=== PATIENT | female | born 1950 | race Two or more races ===

== ENCOUNTER 2022-07-09 10:49 | Inpatient (IN) | payer OTHER ==
[~2022-07-09] VITALS: Ht 160 cm; Wt 85.7 kg
[2022-07-09] MEDS ORDERED: VASOFLEX D1 CA1 EACH PO (15:16)
[2022-07-09] MEDS ORDERED: CARDURA1 MG PO (15:16)
[2022-07-09] MEDS ORDERED: LOSARTAN POTAS100 MG PO (15:16)
[2022-07-09] MEDS ORDERED: PREVACID30 MG PO (15:17)
[2022-07-09] MEDS ORDERED: CLONAZEPAM1 MG PO (15:17)
[2022-07-09] MEDS ORDERED: WELLBUTRIN SR150 MG PO (15:17)
[2022-07-09] MEDS ORDERED: PEPCID40 MG PO (15:17)
[2022-07-09] MEDS ORDERED: PROAIR RESPICL90 MCG IH (15:18)
[2022-07-09] MEDS ORDERED: SYMBICORT 16010.2 GM IH (15:18)
[2022-07-14] MEDS ORDERED: MONTELUKAST SOD10 MG (14:02)
[2022-07-14] MEDS ORDERED: DOXAZOSIN MESYLA2 MG (14:03)
[2022-07-14] MEDS ORDERED: FLEXGEN TABLET1 EACH (14:03)
[2022-07-14] MEDS ORDERED: ATROVENT HFA12.9 GM (14:03)
[2022-07-18] MEDS ORDERED: HYOSCYAMINE0.125 M1 SL (10:53)
== END 2022-07-18 14:33 | disposition home or self-care (01) | DRG 330 ==
LOC: SURH 07-14 10:00 → O/R 07-14 11:47 → SURH 07-14 14:31
PROVIDERS: ADMIT Surgery; ATTEND Surgery
PROC: 07BB4ZZ Excision of Mesenteric Lymphatic, Percutaneous Endoscopic Approach (ICD-10-PCS; 2022-07-14)
PROC: 0DJD8ZZ Inspection of Lower Intestinal Tract, Via Natural or Artificial Opening Endoscopic (ICD-10-PCS; 2022-07-14)
PROC: 0DBU4ZZ Excision of Omentum, Percutaneous Endoscopic Approach (ICD-10-PCS; 2022-07-14)
PROC: 0DTE4ZZ Resection of Large Intestine, Percutaneous Endoscopic Approach (ICD-10-PCS; principal; 2022-07-14 10:00)
PROC: 3E0F7GC Introduction of Other Therapeutic Substance into Respiratory Tract, Via Natural or Artificial Opening (ICD-10-PCS; 2022-07-15)
DX: C18.4 Malignant neoplasm of transverse colon (principal); K92.2 Gastrointestinal hemorrhage, unspecified; I11.9 Hypertensive heart disease without heart failure; K21.9 Gastro-esophageal reflux disease without esophagitis; J45.998 Other asthma